=== PATIENT | male | born 1940 | race Caucasian/White ===

== ENCOUNTER 2017-08-05 10:50 | Inpatient (IN) | payer MEDICARE, OTHER ==
[2017-08-05] MEDS ORDERED: Lorazepam 2 MG/ML VIAL ONE (11:33)
[2017-08-05 11:42] LABS: #Lymphocytes 1.4 thou/uL (1.20-3.40); #Monocytes 0.2 thou/uL (0.11-0.59); #Neutrophils 3.3 thou/uL (1.40-6.50); %Basophils 0.4 % (0.0-1.0); %Eosinophils 0.9 % (0.0-10.0); %Monocytes 4.7 % (0.0-10.0); Hematocrit 42.1 % (42.0-52.0); Mean Platelet Volume 7.5 fL (7.4-10.4); White Blood Cell (WBC) Count 4.9 thou/uL (4.8-10.8)
[2017-08-05 11:56] LABS: PTT 26.4 SEC (22.9-36.1); Prothrombin Time 13.3 SEC (12.0-14.7)
[2017-08-05 11:57] LABS: Lactic Acid - Sepsis 2.4 mmol/L (0.5-2.2)
[2017-08-05 11:59] LABS: Acetaminophen Less than 6.0 mcg/mL (10.0-30.0); Salicylate Less than 8.0 mg/dL (15.0-30.0)
[2017-08-05 12:04] LABS: ALT (SGPT) 18 U/L (8-55); AST (SGOT) 22 U/L (5-34); Alkaline Phosphatase 64 U/L (40-150); Anion Gap 11 mmol/L (10-20); BUN (Urea Nitrogen) 13 mg/dL (8.4-25.7); Bilirubin, Total 0.3 mg/dL (0.2-1.2); CK (CPK) 231 U/L (30-200); Calc. Creatinine Clearance 0 mL/min (70-130); Calcium 8.9 mg/dL (7.8-10.44); Carbon Dioxide 27 mmol/L (23-31); Chloride 107 mmol/L (98-107); Estimated GFR-MDRD 74; Globulin 2.5 g/dL (2.4-3.5); Lipase 62 U/L (8-78); Protein, Total 6.2 g/dL (5.8-8.1)
[2017-08-05 12:08] LABS: Troponin I Less than 0.010 ng/mL (< 0.028)
[2017-08-05 12:29] LABS: Bilirubin Negative (Negative); Blood, Urine Negative (Negative); Glucose, Urine (Dipstick) Negative (Negative); Ketone, Urine Negative (Negative); Nitrite Negative (Negative); Protein, Urine (Dipstick) Negative (Neg-Trace); Urobilinogen 0.2 mg/dL (0.2-1.0)
[2017-08-05 12:38] LABS: Amphetamine Not Detected (NotDetected); Methadone Not Detected (NotDetected); Methamphetamine Not Detected (NotDetected)
--- NOTE | 2017-08-05 13:05 | CT ---
CT BRAIN WITHOUT CONTRAST: Date: 08/05/17 HISTORY: Stroke alert. COMPARISON: None. FINDINGS: Evaluation is limited due to motion artifact. The patient was scanned twice. No acute territorial inf arct or hemorrhage. No midline shift or mass effect. Mild atrophy. Posterior fossa cannot be reliably interrogated for infarct due to motion on both scans. IMPRESSION: 1. No acute intracranial hemorrhage or infarct. 2. Old right lamina papyracea fracture. Dr. Barboza notified of findings via telephone at 1119 hours. CODE CR. POS: [facility]
--- NOTE | 2017-08-05 13:38 | RAD ---
CHEST 1 VIEW: Date: 08/05/17 HISTORY: Altered mental status. COMPARISON: Chest 1 view dated 05/03/08. FINDINGS: There are extensive air space opacities throughout the left lung. Right middle lobe opacity is also p resent. Lungs are hypoinflated. No pneumothorax or effusion. Cardiac silhouette is similar. IMPRESSION: Multifocal air space opacities concerning for infection. POS: [facility]
--- NOTE | 2017-08-05 16:11 | HP ---
PRIMARY CARE PHYSICIAN: [facility] call admission. REASON FOR ADMISSION: Alcohol intoxication, found on the floor, hypothermia, right lower lobe pneumo juarez, lactic acidosis, encephalopathy. HISTORY OF PRESENT ILLNESS: A 77-year-old male, who has only history of hypertension and he is takin g amlodipine, otherwise he is very healthy. He also has a history of benign enlargement of prostate and he is doing in and out catheter at home. He is a professor by profession, and he is teaching in various universities. He drinks alcohol only occasionally, but yesterday entire family had a alliance party a nd they had alcohol intake at that time. They returned home around 11:00 p.m. After returning from alliance party, the patient continued to drink. He was drinking rum and a different type of alcohol. His andrzej cara saw him normal around 11:30, and then she went to bed. This morning, she woke up around 9 and she found the patient on the floor. The patient was completely altered, confused, and incoherent. H e was not talking properly and that is why the patient was brought to emergency room. Patient also h ad one episode of vomiting at home. In the emergency room, when he came at that time he was hypothermic, hypotensive. He also had sinus bradycardia. His CT brain was negative. His routine blood tests showed lactic acidosis and alcohol level was 216. The patient was agitated and that is why he was given a dose of Ativan. In the emerg ency room, patient was hypothermic and that is why he required Chela Hugger and he was also intermitte ntly hypoxic. His chest x-ray showed infiltration in the right lower lobe. Patient received levoflo xacin. When I saw this patient in the emergency room, he was under effect of Ativan, but he was arousable, h e was talking properly, and family member reported that he has some improvement since he was initiall y in the emergency room. His blood pressure is also improving with IV fluid and his temperature is a lso improving with Chela Hugger. Family member reports that he is doing exercises on a regular basis and he never had any chest pain, palpitation, dyspnea on exertion. He did not have any UTI symptoms. He did not have any constipatio n, diarrhea, melena, or hematochezia. The patient also did not have any flu-like illness. In the emergency room, initially stroke alert was initiated, but CT brain was normal, and he did not have any focal neurological deficit. ALLERGIES: No known drug allergies. CURRENT HOME MEDICATIONS: Amlodipine 5 mg p.o. daily. REVIEW OF SYSTEMS: The following complete review of systems was negative, unless otherwise mentioned in the HPI or below: Constitutional: Weight loss or gain, ability to conduct usual activities. Sk in: Rash, itching. Eyes: Double vision, pain. ENT/Mouth: Nose bleeding, neck stiffness, pain, te nderness. Cardiovascular: Palpitations, dyspnea on exertion, orthopnea. Respiratory: Shortness of breath, wheezing, cough, hemoptysis, fever, or night sweats. Gastrointestinal: Poor appetite, abdo talya pain, heartburn, nausea, vomiting, constipation, or diarrhea. Genitourinary: Urgency, frequen cy, dysuria, nocturia. Musculoskeletal: Pain, swelling. Neurologic/Psychiatric: Anxiety, depressi on. Allergy/Immunologic: Skin rash, bleeding tendency. Currently review of systems is not reliable , because of his level of alertness. PAST MEDICAL HISTORY: Benign enlargement of prostate, hypertension. PAST SURGICAL HISTORY: Reviewed and negative. PAST PSYCHIATRIC HISTORY: Reviewed and negative. SOCIAL HISTORY: Patient is a professor by profession. He drinks alcohol occasionally. He is not a heavy alcoholic. He denies any smoking. He does not use any illicit drugs. He lives at home with berny warren. FAMILY HISTORY: No strong family history of premature coronary artery disease, stroke, or cancer. EMERGENCY ROOM COURSE: The patient has received IV fluid 2 liter, Levaquin 750 mg, Ativan 2 mg. PHYSICAL EXAMINATION: VITAL SIGNS: On arrival, blood pressure 115/61, lowest blood pressure is 88/47; pulse 65, lowest pul se rate is 52; respiratory rate 22; saturation 96% on 2 liters oxygen; temperature 94.8 rectally; noemy ght 92.9 kilograms. GENERAL: Patient is currently alert, awake, arousable, follows simple commands. No focal neurologic al deficit, currently bradycardic, hypothermic, and hypotensive. HEENT: Head: Normocephalic, atraumatic. Eyes: Pupils round and reactive to light. Extraocular mu scles intact. ENT: Oropharynx within normal limits. Moist mucous membranes. No oral lesions. No pharyngeal erythema, no exudate. NECK: Supple, no JVD, no thyromegaly, no carotid bruits. LUNGS: Air entry reduced at base, but no rales, no wheeze. No accessory muscles of respiration in u se. CARDIAC: S1, S2 regular, slightly bradycardic. No murmur, no gallop, no rub. ABDOMEN: Soft, bowel sounds present, nontender, nondistended. No organomegaly, no mass, no suprapub ic tenderness. BACK EXAMINATION: Unremarkable, no CVA tenderness. EXTREMITIES: Upper extremities, passive movement of all joints are normal. Lower extremities, no ed ledy, no calf tenderness, and good distal pulsation. SKIN: No skin rash, no cellulitis. No lump on the skin. NEUROLOGIC: Patient is moving all 4 limbs. No focal neurological deficit noted. Reflexes symmetric al. Sensation intact. Motor 5/5. Speech normal. SIGNIFICANT LABORATORY DATA: 1. EKG, based on my review, sinus bradycardia, occasional premature atrial complexes. 2. CT brain, based on my review, no acute intracranial process. 3. Chest x-ray, based on my review, right lower lobe infiltration. 4. CBC: WBC 4.9, hemoglobin 14.2, platelets 158. INR 1.0. BMP: Sodium 141, potassium 3.5, chlori de 107, carbon dioxide 27, anion gap 11, BUN 13, creatinine 0.98, glucose 119, calcium 8.9. Lactic a terence 2.4. LFT: AST 22, ALT 18, alkaline phosphatase 64, albumin 3.7, lipase 62. TSH 2.87. Prolacti n 9.90. CK-MB 6.0, troponin I less than 0.010. 5. Urinalysis normal. Urine drug screen negative. Serum drug screen negative. Alcohol level 216. ASSESSMENT: 1. Acute encephalopathy, suspecting from alcohol intoxication, rule out sepsis. 2. Lactic acidosis, rule out sepsis likely due to alcoholism. 3. Mild rhabdomyolysis due to found fall on the floor for an unknown period of time. 4. Hypothermia, rule out sepsis, maybe environmental exposure. 5. Alcohol intoxication. 6. History of hypertension, but currently low blood pressure. 7. Sinus bradycardia. 8. Right lower lobe pneumonia, rule out aspiration pneumonia. PLAN: 1. The patient will be admitted to telemetry floor. At this point, we will continue with Rocephin a nd Levaquin therapy. We will monitor temperature closely. We will repeat lactic acid level tomorrow . We will continue with IV fluid. His influenza screen is negative. We will watch his hemodynamics very closely. 2. DVT prophylaxis. Lovenox 40 mg subcutaneously daily. 3. GI prophylaxis. Pepcid 20 mg IV b.i.d. The patient will be given IV fluids with banana bag. CODE STATUS: Patient is FULL CODE. Plan of care discussed with the patient and family member at bedside in the emergency room.
[2017-08-05] MEDS ORDERED: Sodium Chloride 0.9% 1,000 ML IV SCH (19:28)
[2017-08-05] MEDS ORDERED: Ondansetron HCl/PF 4 MG/2 ML Vial IVP PRN ×2 (19:28→19:57)
[2017-08-05] MEDS ORDERED: Ondansetron ODT 4 MG TAB SL PRN (19:28)
[2017-08-05] MEDS ORDERED: Sodium Chloride 0.65% Nasal 44 ML BOT EA NARE PRN (19:57)
[2017-08-05] MEDS ORDERED: Eucerin (Mineral Oil/Petrolatum,White) 30 gm Jar TOP PRN (19:57)
[2017-08-05] MEDS ORDERED: Chloraseptic Spray 180 ml Bottle PO PRN (19:57)
[2017-08-05] MEDS ORDERED: HYDROcodone/Acetaminophen 5/325 mg Tablet PO PRN (19:57)
[2017-08-05] MEDS ORDERED: Ondansetron ODT 4 MG TAB PO PRN (19:57)
[2017-08-05] MEDS ORDERED: Senokot 8.6 MG TAB PO PRN (19:57)
[2017-08-05] MEDS ORDERED: Artificial Tears 18 DROP/0.9 ML EA EYE PRN (19:57)
[2017-08-05] MEDS ORDERED: cefTRIAXone\\ROCEPHIN 1 GM in Sodium Chloride 0.9% 100 ML IVPB SCH (19:57)
[2017-08-05] MEDS ORDERED: Acetaminophen 325 MG TAB PO PRN (19:57)
[2017-08-05] MEDS ORDERED: Zolpidem Tartrate 5 MG TAB PO PRN (19:57)
[2017-08-05] MEDS ORDERED: Milk Of Magnesia 30 ML UDCUP PO PRN (19:57)
[2017-08-05] MEDS ORDERED: Loperamide HCl 2 MG CAP PO PRN (19:57)
[2017-08-05] MEDS ORDERED: hydrALAZINE 20 MG/ML VIAL SLOW IVP PRN (19:57)
[2017-08-05] MEDS ORDERED: Mag-Al 1200 mg/1200 mg/30 ML UDCUP PO PRN (19:57)
[2017-08-05] MEDS ORDERED: Diabetic Tussin 200 MG/10 ML UDCUP PO PRN (19:57)
[2017-08-05] MEDS ORDERED: Loratadine 10 MG TAB PO PRN (19:57)
[2017-08-05] MEDS: Famotidine/PF 20 mg/2ml Vial SLOW IVP SCH (21:11)
[2017-08-05] MEDS: cefTRIAXone\\ROCEPHIN 1 GM, Syringe 0.4 ML in Sterile Water 9.6 ML SLOW IVP SCH (21:11)
[2017-08-05] MEDS: Multivitamins, Adult 10 ML, Folic Acid 1 MG, Thiamine HCl 100 MG in Dextrose 5 %-0.45 %... IV SCH ×4 (21:11)
[2017-08-05 21:46] VITALS: BMI 26.9
[2017-08-06 05:47] LABS: #Lymphocytes 1.5 thou/uL (1.20-3.40); #Monocytes 0.8 thou/uL (0.11-0.59); #Neutrophils 4.3 thou/uL (1.40-6.50); %Basophils 0.5 % (0.0-1.0); %Eosinophils 0.7 % (0.0-10.0); %Lymphocytes 22.7 % (21.0-51.0); %Monocytes 11.8 % (0.0-10.0); Hematocrit 40.4 % (42.0-52.0); Mean Platelet Volume 8.1 fL (7.4-10.4); Red Blood Cell (RBC) Count 4.19 mill/uL (4.70-6.10); White Blood Cell (WBC) Count 6.7 thou/uL (4.8-10.8)
[2017-08-06 06:06] LABS: ALT (SGPT) 16 U/L (8-55); AST (SGOT) 29 U/L (5-34); Alkaline Phosphatase 51 U/L (40-150); Anion Gap 8 mmol/L (10-20); BUN (Urea Nitrogen) 12 mg/dL (8.4-25.7); Bilirubin, Total 0.5 mg/dL (0.2-1.2); CK (CPK) 1481 U/L (30-200); Calc. Creatinine Clearance 75 mL/min (70-130); Calcium 8.2 mg/dL (7.8-10.44); Carbon Dioxide 27 mmol/L (23-31); Chloride 110 mmol/L (98-107); Estimated GFR-MDRD 73; Globulin 2.2 g/dL (2.4-3.5); Protein, Total 5.4 g/dL (5.8-8.1)
[2017-08-06] MEDS ORDERED: FLU VACC TS2017-18 (>65YR) 0.5 ML SYRINGE IM ONE (09:00)
--- NOTE | 2017-08-06 09:04 | PDOC.PN ---
- Subjective Encounter Start Date: 08/06/17 Encounter Start Time: 09:02 Patient seen at bedside. Feels better, denies SOB, C/P. Afebrile - Objective Resuscitation Status: Resuscitation Status FULL:Full Resuscitation MAR Reviewed: Yes Vital Signs & Weight: Vital Signs (12 hours) Temp Pulse Resp BP Pulse Ox 08/06/17 07:45 97.5 F L 63 20 186/98 H 96 08/06/17 03:32 97.6 F 69 18 174/81 H 08/06/17 01:22 64 18 93 L 08/06/17 00:00 68 18 164/78 H Weight Weight 193 lb I&O: 08/05/17 08/06/17 08/07/17 06:59 06:59 06:59 Intake Total 1135 Output Total 200 Balance 935 Result Diagrams: 08/06/17 04:34 08/06/17 04:34 Phys Exam - Physical Examination Constitutional: NAD HEENT: moist MMs Neck: no JVD Respiratory: no wheezing rhonchi Cardiovascular: RRR Gastrointestinal: soft Musculoskeletal: pulses present Neurological: moves all 4 limbs Psychiatric: A&O x 3 Dx/Plan (1) PNA (pneumonia) Code(s): J18.9 - PNEUMONIA, UNSPECIFIED ORGANISM Status: Acute (2) Hypertension Code(s): I10 - ESSENTIAL (PRIMARY) HYPERTENSION Status: Chronic (3) Rhabdomyolysis Code(s): M62.82 - RHABDOMYOLYSIS Status: Acute (4) Alcohol abuse Code(s): F10.10 - ALCOHOL ABUSE, UNCOMPLICATED Status: Suspected - Plan cont current plan of care, continue antibiotics, social service assistant, DVT proph w/ lovenox * Start IV Fluids. * Trend CK * Continue with Rocephin/Levaquin * Restart Amlodipine * Daily Labs * ASE Protocol
[2017-08-06] MEDS: Amlodipine 5 MG TAB PO SCH (10:09)
[2017-08-06] MEDS: Famotidine/PF 20 mg/2ml Vial SLOW IVP SCH ×2 (10:11→21:29)
[2017-08-06] MEDS: Enoxaparin Sodium 40 MG/0.4 ML SYRINGE SC SCH (10:11)
[2017-08-06] MEDS: Sodium Chloride 0.9% 1,000 ML IV SCH (13:41)
[2017-08-06] MEDS: cefTRIAXone\\ROCEPHIN 1 GM, Syringe 0.4 ML in Sterile Water 9.6 ML SLOW IVP SCH (21:23)
[2017-08-06] MEDS: Multivitamins, Adult 10 ML, Folic Acid 1 MG, Thiamine HCl 100 MG in Dextrose 5 %-0.45 %... IV SCH ×4 (21:45)
[2017-08-07] MEDS: Sodium Chloride 0.9% 1,000 ML IV SCH ×2 (01:40→08:56)
[2017-08-07 06:00] LABS: ALT (SGPT) 20 U/L (8-55); AST (SGOT) 35 U/L (5-34); Alkaline Phosphatase 56 U/L (40-150); Anion Gap 9 mmol/L (10-20); BUN (Urea Nitrogen) 13 mg/dL (8.4-25.7); Bilirubin, Total 0.7 mg/dL (0.2-1.2); CK (CPK) 1243 U/L (30-200); Calc. Creatinine Clearance 76 mL/min (70-130); Calcium 8.7 mg/dL (7.8-10.44); Carbon Dioxide 28 mmol/L (23-31); Chloride 107 mmol/L (98-107); Estimated GFR-MDRD 74; Globulin 2.3 g/dL (2.4-3.5); Protein, Total 5.6 g/dL (5.8-8.1)
[2017-08-07 07:47] VITALS: BP 159/84; TEMP 97.6
[2017-08-07] MEDS ORDERED: Potassium Chloride 20 MEQ TAB PO SCH (08:00)
[2017-08-07] MEDS: Famotidine/PF 20 mg/2ml Vial SLOW IVP SCH (08:54)
[2017-08-07] MEDS: Amlodipine 5 MG TAB PO SCH (08:55)
[2017-08-07] MEDS: Enoxaparin Sodium 40 MG/0.4 ML SYRINGE SC SCH (08:55)
--- NOTE | 2017-08-07 10:31 | DIS ---
PRIMARY CARE PHYSICIAN: Dr. Charles Goodrich DATE OF ADMISSION: 08/05/2017 DATE OF DISCHARGE: 08/07/2017 DISCHARGE DISPOSITION: Home. PRIMARY DISCHARGE DIAGNOSES: 1. Acute toxic encephalopathy due to alcohol intoxication, resolved. 2. Alcohol intoxication, resolved. 3. Lactic acidosis, improved. 4. Rhabdomyolysis due to fall. 5. Hypothermia, resolved. 6. Multifocal pneumonia, community acquired. SECONDARY DISCHARGE DIAGNOSES: Hypertension, benign enlargement of prostate. PRIMARY PROCEDURE/OPERATION: None. RADIOLOGICAL INVESTIGATION: Chest x-ray showed multifocal infiltration. CT brain was normal. SIGNIFICANT LABS: WBC 6.7, hemoglobin 13.5, platelets 150. INR 1.0. Sodium 141, potassium 3.4, BUN 13, creatinine 0.98, AST 35, ALT 20. Total CK 1243, albumin 3.3. Prolactin 9. TSH 2.8. Urinalysis normal. Urine drug screen negative. Alcohol level was 216. Blood culture negative, influenza negative. DISCHARGE MEDICATIONS: Amlodipine 5 mg p.o. daily, Colace 100 mg p.o. daily, doxazosin 8 mg p.o. daily, Avodart 0.5 mg p.o. daily, Levaquin 750 mg p.o. daily for 7 days, Ocuvite 1 tablet p.o. daily. CONTRAINDICATIONS: None. CODE STATUS: FULL CODE. INPATIENT CONSULTANTS: None. ALLERGIES: No known drug allergies. DISCHARGE PLAN: Post hospital, the patient will follow up with primary care physician. The patient is advised to follow up with either Nephrology, Dr. Davenport, or primary care physician for repeat CK testing and primary care needs to follow up on that result. DISCHARGE PLAN: Post hospital, the patient will follow up with primary care physician. HOSPITAL COURSE: A 77-year-old male who was admitted by me. Please see my HPI for further details. This patient had a democrat and he drank significant amounts of alcohol and subsequently after going home, he drank strong alcohol which his daughter brought from [place] of country. After that the patient was found on the floor in the morning. Duration of fall on the floor was not known. He was found with encephalopathy. His alcohol level was 216. He also had rhabdomyolysis. His chest x-ray showed multifocal infiltration. He had lactic acidosis. He was admitted to telemetry floor. His CT brain was normal. Chest x-ray showed multifocal infiltration. We treated him with levofloxacin. He was given IV fluid for alcohol intoxication as well as rhabdomyolysis. Over the next couple of days the patient's condition improved to normal. Today he wanted to go home. The patient is seen and examined at bedside today. All other review of systems was reviewed with him and negative. VITAL SIGNS: His temperature is 97.6, pulse 77, respiratory rate 16, saturation 94%, blood pressure 159/84, weight 195 pounds. GENERAL: The patient is currently alert, oriented x3. Cranial nerves II-XII intact. LUNGS: Clear to auscultation without any rhonchi. CARDIAC: S1, S2 regular without any murmur. ABDOMEN: Soft and benign. EXTREMITIES: No edema. NEUROLOGIC: Nonfocal examination. The patient is medically stable for discharge today. Total time spent on discharge more than 30 minutes MTDD
== END 2017-08-07 11:49 | disposition home or self-care (01) | DRG 917 ==
LOC: ERS 10:50 → 2NO 14:51
PROVIDERS: ADMIT Internal Medicine; ATTEND Internal Medicine
DX: T51.0X1A Toxic effect of ethanol, accidental (unintentional), initial encounter (principal); G92 Toxic encephalopathy; J69.0 Pneumonitis due to inhalation of food and vomit; E87.2 Acidosis; M62.82 Rhabdomyolysis; Y92.009 Unspecified place in unspecified non-institutional (private) residence as the place of occurrence of the external cause; I10 Essential (primary) hypertension; N40.1 Benign prostatic hyperplasia with lower urinary tract symptoms
CPT/HCPCS: 36415; 36416; 70450; 71010; 80053; 80306; 80307; 81003; 82140; 82550; 82553; 83605; 83690; 83880; 84146; 84443; 84484; 85025; 85610; 85730; 87040; 90471; 90682; 90732; 93005; 94640; A4216; G0008; G0009; J0360; J0696; J1650; J1956; J2060; J3411; J7042; J7620; Q2036; S0028